=== PATIENT | female | born 1980 | race African-American/Black ===

== ENCOUNTER 2020-08-15 06:40 | Emergency (ER) | payer MEDICAID, OTHER ==
[~2020-08-15] VITALS: Ht 172.7 cm; Wt 68.0 kg
[2020-08-15] MEDS ORDERED: IBUPROFEN 800MG TABLET PO ONE (08:00)
[2020-08-15] MEDS ORDERED: OXYCODONE HCL/ACETAMINOPHEN 5/325MG TABLET PO ONE (08:00)
[2020-08-15] MEDS ORDERED: IBUP-2028 PO (09:09)
[2020-08-15] MEDS ORDERED: T3 PO (09:09)
[2020-08-15 09:50] VITALS: BP 127/91
== END 2020-08-15 10:02 | disposition home or self-care (01) ==
LOC: ER 06:40
DX: M54.5 Low back pain (principal); R20.0 Anesthesia of skin; R20.2 Paresthesia of skin; R03.0 Elevated blood-pressure reading, without diagnosis of hypertension; R05 Cough
CPT/HCPCS: 72100; 99283; Z7610